=== PATIENT | male | born 1955 | race Caucasian/White ===

== ENCOUNTER 2017-10-10 11:11 | Emergency (ER) | payer SELFPAY ==
[~2017-10-10] VITALS: Ht 182.9 cm; Wt 104.5 kg
[~2017-10-10 11:11] MED LIST: PERC7.5T13 PO; VALI5TAB PO
[2017-10-10 11:12] VITALS: BP 159/96; PULSE 89; RESP 18; TEMP 96.9; O2SAT 97
[2017-10-10] MEDS ORDERED: IOHEXOL 350 MG/ML 10 ML VIAL (for RAD DIAG) IVCONTRAST ONE (11:12)
[2017-10-10] MEDS ORDERED: NORV2.5T PO (11:56)
[2017-10-10] MEDS ORDERED: DIAZ10 PO (11:56)
[2017-10-10] MEDS ORDERED: SODIUM CHLOR 0.9% 1000 ML INJ 1,000 ML IV SCH (12:20)
[2017-10-10] MEDS ORDERED: ONDANSETRON HCL 4 MG/2 ML VIAL IVP ONE (12:30)
[2017-10-10] MEDS ORDERED: SODIUM CHLORIDE 0.9% FLUSH 10 ML FLUSH IV FLUSH PRN (12:30)
[2017-10-10] MEDS ORDERED: MORPHINE SULFATE 4 MG/ML INJ IV PUSH ONE (12:30)
[2017-10-10 12:31] VITALS: RESP 17; O2SAT 98
--- NOTE | 2017-10-10 12:33 | PD ---
HPI Chief Complaint: Abdominal Pain Time Seen by Provider: 12:14 Travel History International Travel<30 days: No Contact w/Intl Traveler<30days: No Traveled to known affect area: No History of Present Illness HPI Patient is a 62-year-old male with history of hypertension currently taking amlodipine 2.5 mg daily who presents to emergency room complaints of abdominal pain. Reports that he has been having on and off abdominal pain for the past 6- 8 months. Patient reports that his right lower quadrant abdominal pain was exacerbated on . Patient reports that since , he has been sick and has not been able to get a bed. Patient reports that he has been having fevers and chills, reports that he has had multiple episodes of diarrhea. Patient reports that his is sick with similar symptoms only she does not have abdominal pain. Patient reports that pain starts in the right lower quadrant and radiates to his left lower quadrant. Denies any recent travels/ trips PFSH Past Medical History Arthritis: Yes Anxiety: Yes Depression: Yes Cardiac Catheterization: No Cardiovascular Problems: Yes (MITRAL VALVE PROLAPSE) High Cholesterol: No Congestive Heart Failure: No Diabetes: No Diminished Hearing: No Gastrointestinal Disorders: Yes GERD: Yes Hypertension: Yes (BORDERLINE) Psychiatric: Yes Tetanus Vaccination: > 5 Years Influenza Vaccination: No Past Surgical History Other Surgery: Yes (COLONOSCOPY) Social History Alcohol Use: No Tobacco Use: No (QUIT 2 YEARS AGO) Substance Use: No Allergies-Medications (Allergen,Severity, Reaction): Coded Allergies: codeine (Verified Adverse Reaction, Mild, Nausea/Vomiting, 10/10/17) Reported Meds & Prescriptions Reported Meds & Active Scripts Active Bentyl (Dicyclomine HCl) 10 Mg Cap 10 Mg PO QID Zofran (Ondansetron HCl) 4 Mg Tab 4 Mg PO Q6HR PRN Reported Valium (Diazepam) 10 Mg Tab 10 Mg PO BID PRN Norvasc (Amlodipine Besylate) 2.5 Mg Tab 2.5 Mg PO DAILY Review of Systems General / Constitutional: Positive: Fever, Chills Eyes: No: Visual changes HENT: No: Headaches Cardiovascular: No: Chest Pain or Discomfort Respiratory: No: Shortness of Breath Gastrointestinal: Positive: Nausea, Diarrhea, Abdominal Pain Genitourinary: No: Urgency, Frequency, Dysuria, Nocturia, Pelvic Pain Musculoskeletal: No: Pain Skin: No Rash Neurologic: No: Weakness Psychiatric: No: Depression Endocrine: No: Polydipsia Hematologic/Lymphatic: No: Easy Bruising Physical Exam Narrative GENERAL: moderate distress SKIN: Focused skin assessment warm/dry. HEAD: Atraumatic. Normocephalic. EYES: Pupils equal and round. No scleral icterus. No injection or drainage. ENT: No nasal bleeding or discharge. Mucous membranes pink and moist. NECK: Trachea midline. No JVD. CARDIOVASCULAR: Regular rate and rhythm. No murmur appreciated. RESPIRATORY: No accessory muscle use. Clear to auscultation. Breath sounds equal bilaterally. GASTROINTESTINAL: Abdomen soft, tender to rlq with rebound and guarding on exam MUSCULOSKELETAL: No obvious deformities. No clubbing. No cyanosis. No edema. NEUROLOGICAL: Awake and alert. No obvious cranial nerve deficits. Motor grossly within normal limits. Normal speech. PSYCHIATRIC: Appropriate mood and affect; insight and judgment normal. Data Data Last Documented VS Vital Signs Date Time Temp Pulse Resp B/P (MAP) Pulse Ox O2 Delivery O2 Flow Rate FiO2 10/10/17 12:42 16 10/10/17 12:31 98 Room Air 10/10/17 11:12 96.9 89 Orders Orders Complete Blood Count With Diff (10/10/17 12:20) Comprehensive Metabolic Panel (10/10/17 12:20) Lipase (10/10/17 12:20) Prothrombin Time / Inr (Pt) (10/10/17 12:20) Act Partial Throm Time (Ptt) (10/10/17 12:20) Urinalysis - C+S If Indicated (10/10/17 12:20) Iv Access Insert/Monitor (10/10/17 12:20) Ecg Monitoring (10/10/17 12:20) Oximetry (10/10/17 12:20) NPO (10/10/17 12:20) Sodium Chlor 0.9% 1000 Ml Inj (Ns 1000 M (10/10/17 12:20) Sodium Chloride 0.9% Flush (Ns Flush) (10/10/17 12:30) Ct Abd/Pel W Iv Contrast(Rout) (10/10/17 12:25) Morphine Inj (Morphine Inj) (10/10/17 12:30) Ondansetron Inj (Zofran Inj) (10/10/17 12:30) Iohexol 350 Inj (Omnipaque 350 Inj) (10/10/17 11:12) Labs Laboratory Tests Test 10/10/17 12:21 10/10/17 13:15 White Blood Count 6.4 TH/MM3 Red Blood Count 5.64 MIL/MM3 Hemoglobin 17.2 GM/DL Hematocrit 50.0 % Mean Corpuscular Volume 88.6 FL Mean Corpuscular Hemoglobin 30.6 PG Mean Corpuscular Hemoglobin Concent 34.5 % Red Cell Distribution Width 13.4 % Platelet Count 211 TH/MM3 Mean Platelet Volume 8.7 FL Neutrophils (%) (Auto) 46.6 % Lymphocytes (%) (Auto) 31.9 % Monocytes (%) (Auto) 19.8 % Eosinophils (%) (Auto) 1.3 % Basophils (%) (Auto) 0.4 % Neutrophils # (Auto) 3.0 TH/MM3 Lymphocytes # (Auto) 2.0 TH/MM3 Monocytes # (Auto) 1.3 TH/MM3 Eosinophils # (Auto) 0.1 TH/MM3 Basophils # (Auto) 0.0 TH/MM3 CBC Comment DIFF FINAL Differential Comment Prothrombin Time 10.9 SEC Prothromb Time International Ratio 1.1 RATIO Activated Partial Thromboplast Time 28.3 SEC Blood Urea Nitrogen 18 MG/DL Creatinine 1.21 MG/DL Random Glucose 98 MG/DL Total Protein 8.5 GM/DL Albumin 3.8 GM/DL Calcium Level 9.5 MG/DL Alkaline Phosphatase 67 U/L Aspartate Amino Transf (AST/SGOT) 26 U/L Alanine Aminotransferase (ALT/SGPT) 35 U/L Total Bilirubin 0.5 MG/DL Sodium Level 136 MEQ/L Potassium Level 4.8 MEQ/L Chloride Level 103 MEQ/L Carbon Dioxide Level 27.1 MEQ/L Anion Gap 6 MEQ/L Estimat Glomerular Filtration Rate 61 ML/MIN Lipase 202 U/L Urine Color YELLOW Urine Turbidity CLEAR Urine pH 5.5 Urine Specific [place] 1.025 Urine Protein 30 mg/dL Urine Glucose (UA) NEG mg/dL Urine Ketones TRACE mg/dL Urine Occult Blood NEG Urine Nitrite NEG Urine Bilirubin NEG Urine Urobilinogen LESS THAN 2.0 MG/DL Urine Leukocyte Esterase NEG Urine WBC 1 /hpf Urine Squamous Epithelial Cells <1 /hpf Urine Mucus FEW /lpf Microscopic Urinalysis Comment CULT NOT INDICATED MDM Medical Decision Making Medical Screen Exam Complete: Yes Emergency Medical Condition: Yes Medical Record Reviewed: Yes Interpretation(s) Vital Signs Date Time Temp Pulse Resp B/P (MAP) Pulse Ox O2 Delivery O2 Flow Rate FiO2 10/10/17 11:57 17 10/10/17 11:12 96.9 89 18 159/96 (117) 97 Differential Diagnosis Appendicitis, gastroenteritis, colitis, viral syndrome, electrolyte abnormality , uti Narrative Course 62-year-old male who presents to emergency room with complaints of abdominal pain which has been ongoing for the past 6-8 months. He reports that since , he has had fevers and chills, he has not been able to get out of bed and has increased right lower quadrant pain radiating to his left lower quadrant. On evaluation, patient is uncomfortable, he has had right lower quadrant pain with rebound and guarding exam, CT of the abdomen and pelvis ordered to evaluate for possible appendicitis versus colitis. During the course of the patients emergency department visit, the patients history, examination, and differential diagnosis were reviewed with the patient. The patient was placed on a panelbeater with oximetry and frequent blood pressure monitoring. The patient had an V access obtained and blood work sent for analysis. The patient was initially provided IVF, IV Morphine as well as IV zofran The patients laboratory studies were reviewed and remarkable for: CBC & BMP Diagram 10/10/17 12:21 Total Protein 8.5 H, Albumin 3.8, Calcium Level 9.5, Alkaline Phosphatase 67, Aspartate Amino Transf (AST/SGOT) 26, Alanine Aminotransferase (ALT/SGPT) 35, Total Bilirubin 0.5 Radiology studies were reviewed and remarkable for: Last Impressions Abdomen/Pelvis CT 10/10/17 1225 Signed Impressions: Service Date/Time: Tuesday, October 10, 2017 13:37 - CONCLUSION: 1. Negative for appendicitis. 2. I do not see an etiology for the right lower quadrant pain Jacobo Hernandez MD FACR Laboratory unremarkable, CT of the abdomen pelvis with IV contrast unremarkable , patient with most likely a gastroenteritis as his has similar symptoms at home. Discussed with him need to hydrate with fluids, I did review with him signs and symptoms of acute abdomen. Patient will return to the emergency room as needed. In the meantime, patient will follow up with his primary care doctor. He'll be given a copy of the lab work as well as his studies for follow up. Abdomen is soft, nontender, nondistended, no peritoneal signs on discharge. Diagnosis Primary Impression: Abdominal pain Qualified Codes: R10.30 - Lower abdominal pain, unspecified Patient Instructions: General Instructions, Narcotic given in the ED Departure Forms: Tests/Procedures, Work Release Enter return to work date: Oct 12, 2017 Additional Instructions: Please provide patient with a copy of their lab work and studies at discharge* * Please follow up with your primary care doctor in 1-2 days Return to the ER if symptoms worsen or progress Return to the ER as needed Please drink plenty of fluids Med/Other Pt SpecificInfo: Prescription(s) given Scripts Dicyclomine (Bentyl) 10 Mg Cap 10 MG PO QID for Bowel Management, #20 CAP 0 Refills Prov: Eva Vinson DO 10/10/17 Ondansetron (Zofran) 4 Mg Tab 4 MG PO Q6HR Y for NAUSEA OR VOMITING, #20 TAB 0 Refills Prov: Eva Vinson DO 10/10/17 Disposition: 01 DISCHARGE HOME Condition: Stable Eva Vinson DO Oct 10, 2017 12:33
[2017-10-10 12:42] VITALS: RESP 16
[2017-10-10 12:45] LABS: BASOPHIL % 0.4 % (0.0-2.0); EOSINOPHIL # 0.1 TH/MM3 (0-0.4); EOSINOPHIL % 1.3 % (0.0-4.0); HEMOGLOBIN 17.2 GM/DL (13.0-17.0); LYMPH % 31.9 % (9.0-44.0); MEAN CELL VOLUME 88.6 FL (80.0-100.0); MEAN CORPUSCULAR HEMOGLOBIN 30.6 PG (27.0-34.0); MEAN CORPUSCULAR HGB CONC 34.5 % (32.0-36.0); MEAN PLATELET VOLUME 8.7 FL (7.0-11.0); MONO % 19.8 % (0.0-8.0); MONOCYTE # 1.3 TH/MM3 (0-0.9); NEUT % 46.6 % (16.0-70.0); PLATELET COUNT 211 TH/MM3 (150-450); RED BLOOD COUNT 5.64 MIL/MM3 (4.50-5.90); RED CELL DISTRIBUTION WIDTH 13.4 % (11.6-17.2); WHITE BLOOD COUNT 6.4 TH/MM3 (4.0-11.0)
[2017-10-10 12:49] LABS: INTERNATIONAL NORMALIZED RATIO 1.1 RATIO; PROTHROMBIN TIME - PATIENT 10.9 SEC (9.8-11.6)
[2017-10-10 12:58] LABS: ALBUMIN 3.8 GM/DL (3.4-5.0); ALT (GPT) 35 U/L (12-78); AST (GOT) 26 U/L (15-37); BICARBONATE 27.1 MEQ/L (21.0-32.0); BLOOD UREA NITROGEN 18 MG/DL (7-18); CALCIUM 9.5 MG/DL (8.5-10.1); CHLORIDE 103 MEQ/L (98-107); CREATININE 1.21 MG/DL (0.60-1.30); GLOMERULAR FILTRATION RATE 61 ML/MIN (>89); GLUCOSE,RANDOM 98 MG/DL (74-106); LIPASE 202 U/L (73-393); SODIUM (NA) 136 MEQ/L (136-145)
[2017-10-10 13:00] LABS: ALKALINE PHOSPHATASE 67 U/L (45-117); TOTAL BILIRUBIN ADULT 0.5 MG/DL (0.2-1.0); TOTAL PROTEIN 8.5 GM/DL (6.4-8.2)
[2017-10-10 13:32] LABS: BILIRUBIN, URINE NEG (NEG); BLOOD, URINE NEG (NEG); GLUCOSE,URINE NEG (NEG); KETONE, URINE TRACE mg/dL (NEG); MUCUS URINE FEW /lpf (OCC); NITRITE,URINE NEG (NEG); PH, URINE 5.5 (5.0-8.5); SQUAMOUS EPITHELIAL CELL URINE <1 /hpf (0-5); URINE COLOR YELLOW (YELLW/STRAW); URINE LEUKOCYTE ESTERASE NEG (NEG)
--- NOTE | 2017-10-10 13:55 | RADRPT ---
EXAM DATE/TIME: 10/10/2017 13:37 [facility] COMPARISON: CT ABDOMEN & PELVIS W CONTRAST, October 02, 2013, 1:13. INDICATIONS : Right lower quadrant pain for 3 days IV CONTRAST: 90 cc Omnipaque 350 (iohexol) IV ORAL CONTRAST: No oral contrast ingested. RADIATION DOSE: 12.83 CTDIvol (mGy) MEDICAL HISTORY : Hypertension. SURGICAL HISTORY : None. ENCOUNTER: Initial ACUITY: 3 days PAIN SCALE: 5/10 LOCATION: Right lower quadrant TECHNIQUE: Volumetric scanning of the abdomen and pelvis was performed. Using automated exposure control and ad justment of the mA and/or kV according to patient size, radiation dose was kept as low as reasonably achievable to obtain optimal diagnostic quality images. DICOM format image data is available electro nically for review and comparison. FINDINGS: Lung base is are clear. The liver, spleen, pancreas and adrenals unremarkable There is symmetric renal function without stone obstruction Region the cecum in right lower quadrant appear normal. There is abnormal appearing appendix without inflammatory changes. The pelvis there are no inflammatory changes. Bladder, prostate and seminal vesicles unremarkable There is no labral adenopathy There is no enterocolitis. Review of bone windows reveals mild degenerative changes. CONCLUSION: 1. Negative for appendicitis. 2. I do not see an etiology for the right lower quadrant pain Jacobo Hernandez MD FACR on October 10, 2017 at 13:51 Board Certified Radiologist. This report was verified electronically.
[2017-10-10] MEDS ORDERED: ZOFR4TAB PO ×2 (14:11→14:56)
[2017-10-10] MEDS ORDERED: DICY10 PO ×2 (14:11→14:56)
[2017-10-10 15:47] VITALS: BP 134/66
== END 2017-10-10 16:03 | disposition home or self-care (01) ==
LOC: NEPD 11:11
DX: R10.31 Right lower quadrant pain (principal)
CPT/HCPCS: 74177; 80053; 81001; 83690; 85025; 85610; 85730; 96374; 96375; 99285; J2270; J2405; J7030; Q9967

== ENCOUNTER 2018-01-24 14:05 | Emergency (ER) | payer SELFPAY ==
[~2018-01-24] VITALS: Ht 182.9 cm; Wt 102.3 kg
[~2018-01-24 14:05] MED LIST changes: +DIAZ10 PO; +DICY10 PO; +NORV2.5T PO; -PERC7.5T13 PO; -VALI5TAB PO; +ZOFR4TAB PO
[2018-01-24] MEDS ORDERED: GADODIAMIDE PF 287 MG/ML 20 ML VIAL (for RAD MRI) IV PUSH ONE (14:06)
[2018-01-24 14:13] VITALS: BP 152/74; PULSE 65; RESP 18; TEMP 97.4; O2SAT 100
--- NOTE | 2018-01-24 14:57 | RADRPT ---
EXAM DATE/TIME: 01/24/2018 14:45 [facility] COMPARISON: CT ABDOMEN & PELVIS W CONTRAST, October 10, 2017, 13:37. INDICATIONS : Dizziness and headache for 1 week RADIATION DOSE: 37.75 CTDIvol (mGy) MEDICAL HISTORY : Hypertension. SURGICAL HISTORY : None. ENCOUNTER: Initial ACUITY: 1 week PAIN SCALE: 6/10 LOCATION: cranial TECHNIQUE: Multiple contiguous axial images were obtained of the head. Using automated exposure control and adj ustment of the mA and/or kV according to patient size, radiation dose was kept as low as reasonably a chievable to obtain optimal diagnostic quality images. DICOM format image data is available electro nically for review and comparison. FINDINGS: CEREBRUM: The ventricles are normal for age. No evidence of midline shift, mass lesion, hemorrhage or acute in farction. No extra-axial fluid collections are seen. POSTERIOR FOSSA: The cerebellum and brainstem are intact. The 4th ventricle is midline. The cerebellopontine angle i s unremarkable. EXTRACRANIAL: The visualized portion of the orbits is intact. SKULL: The calvaria is intact. No evidence of skull fracture. CONCLUSION: 1. No acute intracranial abnormality identified. Robinson Hernandez MD on January 24, 2018 at 14:51 Board Certified Radiologist. This report was verified electronically.
[2018-01-24 15:16] VITALS: BP 159/76; PULSE 65; RESP 19; O2SAT 100
[2018-01-24] MEDS ORDERED: SODIUM CHLORID 0.9% 500 ML INJ 500 ML IV ONE (15:30)
[2018-01-24] MEDS ORDERED: MECLIZINE HCL 25 MG TAB PO ONE (15:30)
[2018-01-24 15:47] LABS: AUTOMATED NEUTROPHIL # 6.4 TH/MM3 (1.8-7.7); BASOPHIL # 0.1 TH/MM3 (0-0.2); BASOPHIL % 0.6 % (0.0-2.0); EOSINOPHIL # 0.4 TH/MM3 (0-0.4); EOSINOPHIL % 3.6 % (0.0-4.0); HEMATOCRIT 44.3 % (39.0-51.0); HEMOGLOBIN 15.3 GM/DL (13.0-17.0); LYMPH % 26.3 % (9.0-44.0); LYMPHOCYTE # 2.7 TH/MM3 (1.0-4.8); MEAN CELL VOLUME 88.9 FL (80.0-100.0); MEAN CORPUSCULAR HEMOGLOBIN 30.8 PG (27.0-34.0); MEAN CORPUSCULAR HGB CONC 34.6 % (32.0-36.0); MEAN PLATELET VOLUME 8.5 FL (7.0-11.0); MONOCYTE # 0.7 TH/MM3 (0-0.9); NEUT % 62.5 % (16.0-70.0); PLATELET COUNT 257 TH/MM3 (150-450); RED BLOOD COUNT 4.98 MIL/MM3 (4.50-5.90); RED CELL DISTRIBUTION WIDTH 13.5 % (11.6-17.2); WHITE BLOOD COUNT 10.3 TH/MM3 (4.0-11.0)
[2018-01-24] MEDS ORDERED: ACETAMINOPHEN 325 MG TAB PO ONE (16:00)
[2018-01-24 16:03] LABS: ALBUMIN 4.1 GM/DL (3.4-5.0); AST (GOT) 16 U/L (15-37); BICARBONATE 26.3 MEQ/L (21.0-32.0); BLOOD UREA NITROGEN 10 MG/DL (7-18); CALCIUM 9.1 MG/DL (8.5-10.1); CHLORIDE 110 MEQ/L (98-107); CREATININE 0.93 MG/DL (0.60-1.30); GLOMERULAR FILTRATION RATE 83 ML/MIN (>89); GLUCOSE,RANDOM 91 MG/DL (74-106); SODIUM (NA) 142 MEQ/L (136-145)
[2018-01-24 16:14] LABS: ALKALINE PHOSPHATASE 85 U/L (45-117); ALT (GPT) 31 U/L (12-78); TOTAL BILIRUBIN ADULT 0.4 MG/DL (0.2-1.0); TOTAL PROTEIN 7.9 GM/DL (6.4-8.2); TROPONIN I 0.03 NG/ML (0.02-0.05)
--- NOTE | 2018-01-24 17:02 | PD ---
HPI Chief Complaint: Headache Time Seen by Provider: 15:09 Travel History International Travel<30 days: No Contact w/Intl Traveler<30days: No Traveled to known affect area: No History of Present Illness HPI Patient is a 62-year-old male comes in complaining of dizziness and headache. He says that last Tuesday he had an episode of dizziness that caused him to fall. He denies losing consciousness. He says since then he has had a headache. He went to see his doctor who ordered a CAT scan of his brain, but he said that his insurance is not approved the test yet. He says his told him to come in because he should not wait any longer. He says the pain is all over his head. He is no longer feeling dizzy. He denies chest pain or shortness of breath. He denies fever chills. He denies any head injury. He took [id number]-[id number] pain medicine without relief of his symptoms. He says the dizziness really came on whenever he moved around, and he was okay when staying still. Severity is mild to moderate. PFSH Past Medical History Arthritis: Yes Anxiety: Yes Depression: Yes Cardiac Catheterization: Yes Cardiovascular Problems: Yes (MITRAL VALVE PROLAPSE) High Cholesterol: No Congestive Heart Failure: No Diabetes: No Diminished Hearing: No Gastrointestinal Disorders: Yes GERD: Yes Headaches: Yes Hypertension: Yes Psychiatric: Yes Tetanus Vaccination: Unknown Influenza Vaccination: No Past Surgical History Other Surgery: Yes (COLONOSCOPY) Social History Alcohol Use: No Tobacco Use: No (QUIT 2 YEARS AGO) Substance Use: No Allergies-Medications (Allergen,Severity, Reaction): Coded Allergies: codeine (Verified Adverse Reaction, Mild, Nausea/Vomiting, 10/10/17) Reported Meds & Prescriptions Reported Meds & Active Scripts Active Bentyl (Dicyclomine HCl) 10 Mg Cap 10 Mg PO QID Zofran (Ondansetron HCl) 4 Mg Tab 4 Mg PO Q6HR PRN Reported Valium (Diazepam) 10 Mg Tab 10 Mg PO BID PRN Norvasc (Amlodipine Besylate) 2.5 Mg Tab 2.5 Mg PO DAILY Review of Systems Except as stated in HPI: all other systems reviewed are Neg General / Constitutional: No: Fever, Chills Eyes: Positive: Blurred Vision HENT: Positive: Headaches, Vertigo Cardiovascular: No: Chest Pain or Discomfort Respiratory: No: Shortness of Breath Gastrointestinal: No: Nausea, Vomiting Musculoskeletal: No: Myalgias Skin: No Rash, No Change in Pigmentation Neurologic: No: Weakness, Dizziness Physical Exam Narrative GENERAL: Awake and alert, in no acute distress. SKIN: Focused skin assessment warm/dry. HEAD: Atraumatic. Normocephalic. EYES: Pupils equal and round. No scleral icterus. Extraocular movements intact. ENT: Mucous membranes pink and moist. NECK: Trachea midline. No JVD. CARDIOVASCULAR: Regular rate and rhythm. No murmur appreciated. RESPIRATORY: No accessory muscle use. Clear to auscultation. Breath sounds equal bilaterally. GASTROINTESTINAL: Abdomen soft, non-tender, nondistended. MUSCULOSKELETAL: No obvious deformities. No clubbing. No cyanosis. No edema. NEUROLOGICAL: Awake and alert. No obvious cranial nerve deficits. Motor grossly within normal limits. Normal speech. Normal cerebellar function testing. PSYCHIATRIC: Appropriate mood and affect; insight and judgment normal. Data Data Last Documented VS Vital Signs Date Time Temp Pulse Resp B/P (MAP) Pulse Ox O2 Delivery O2 Flow Rate FiO2 01/24/18 15:17 67 19 100 Room Air 01/24/18 15:16 159/76 (103) 01/24/18 14:13 97.4 Orders Orders Electrocardiogram (01/24/18 14:16) Complete Blood Count With Diff (01/24/18 14:16) Comprehensive Metabolic Panel (01/24/18 14:16) Creatine Kinase (Cpk) (01/24/18 14:16) Prothrombin Time / Inr (Pt) (01/24/18 14:16) Act Partial Throm Time (Ptt) (01/24/18 14:16) Troponin I (01/24/18 14:16) Thyroid Stimulating Hormone (01/24/18 14:16) Ct Brain W/O Iv Contrast(Rout) (01/24/18 14:16) Meclizine (Antivert) (01/24/18 15:30) Sodium Chlorid 0.9% 500 Ml Inj (Ns 500 M (01/24/18 15:30) Acetaminophen (Tylenol) (01/24/18 16:00) Mri Brain W&W/O Contrast (01/24/18 ) Gadodiamide Pf Inj (Omniscan Pf Inj) (01/24/18 14:06) Prochlorperazine Inj (Compazine Inj) (01/24/18 17:30) Diphenhydramine Inj (Benadryl Inj) (01/24/18 17:30) Ketorolac Inj (Toradol Inj) (01/24/18 17:30) Labs Laboratory Tests Test 01/24/18 15:30 White Blood Count 10.3 TH/MM3 Red Blood Count 4.98 MIL/MM3 Hemoglobin 15.3 GM/DL Hematocrit 44.3 % Mean Corpuscular Volume 88.9 FL Mean Corpuscular Hemoglobin 30.8 PG Mean Corpuscular Hemoglobin Concent 34.6 % Red Cell Distribution Width 13.5 % Platelet Count 257 TH/MM3 Mean Platelet Volume 8.5 FL Neutrophils (%) (Auto) 62.5 % Lymphocytes (%) (Auto) 26.3 % Monocytes (%) (Auto) 7.0 % Eosinophils (%) (Auto) 3.6 % Basophils (%) (Auto) 0.6 % Neutrophils # (Auto) 6.4 TH/MM3 Lymphocytes # (Auto) 2.7 TH/MM3 Monocytes # (Auto) 0.7 TH/MM3 Eosinophils # (Auto) 0.4 TH/MM3 Basophils # (Auto) 0.1 TH/MM3 CBC Comment DIFF FINAL Differential Comment Prothrombin Time 10.0 SEC Prothromb Time International Ratio 1.0 RATIO Activated Partial Thromboplast Time 25.3 SEC Blood Urea Nitrogen 10 MG/DL Creatinine 0.93 MG/DL Random Glucose 91 MG/DL Total Protein 7.9 GM/DL Albumin 4.1 GM/DL Calcium Level 9.1 MG/DL Alkaline Phosphatase 85 U/L Aspartate Amino Transf (AST/SGOT) 16 U/L Alanine Aminotransferase (ALT/SGPT) 31 U/L Total Bilirubin 0.4 MG/DL Sodium Level 142 MEQ/L Potassium Level 4.3 MEQ/L Chloride Level 110 MEQ/L Carbon Dioxide Level 26.3 MEQ/L Anion Gap 6 MEQ/L Estimat Glomerular Filtration Rate 83 ML/MIN Total Creatine Kinase 58 U/L Troponin I 0.03 NG/ML Thyroid Stimulating Hormone 3rd Gen 0.633 uIU/ML MDM Medical Decision Making Medical Screen Exam Complete: Yes Emergency Medical Condition: Yes Medical Record Reviewed: Yes Interpretation(s) ECG shows sinus rhythm at a rate of 58, 0.[address] elevation in leads aVF and V3. No ST depressions. Differential Diagnosis Dehydration versus vertigo versus TIA versus tension headache Narrative Course Patient is a 62 year old male who comes in complaining of headache and dizziness. Exam shows no neurologic abnormalities. IV established, labs sent. Labs show no acute abnormalities. CT head shows no acute abnormalities. MRI brain shows no acute abnormalities. Last [address] 01/24/18 1416 Signed Impressions: Service Date/Time: Wednesday, January 24, 2018 14:45 - CONCLUSION: 1. No acute intracranial abnormality identified. Robinson Hernandez MD Brain MRI 01/24/18 0000 Signed Impressions: Service Date/Time: Wednesday, January 24, 2018 16:08 - CONCLUSION: Normal MRI of the brain. Jad Yates MD Given migraine cocktail. Discharged to follow up with his doctor. Advised to return to the ED as needed for any worsening symptoms. Given a prescription for Fioricet to take for severe headache symptoms. Diagnosis Primary Impression: Headache Qualified Codes: R51 - Headache Patient Instructions: Acute Headache (ED), General Instructions Additional Instructions: Take Tylenol or ibuprofen as needed for headache. You can take a Fioricet as needed for severe headache. Drink plenty of fluids. Follow-up with your doctor. Return to the ED as needed for any worsening symptoms. Scripts Lmneqyrgsx-Jzlwweizevwce-Pjddpzrg (Fioricet) 50-300-40 Mg Cap 1 CAP PO Q4H Y for HEADACHE, #10 CAP 0 Refills Prov: Echo Garrido MD 01/24/18 Disposition: 01 DISCHARGE HOME Condition: Stable Echo Garrido MD Jan 24, 2018 17:02
--- NOTE | 2018-01-24 17:05 | RADRPT ---
EXAM DATE/TIME: 01/24/2018 16:08 [facility] COMPARISON: CT BRAIN W/O CONTRAST, January 24, 2018, 14:45. INDICATIONS : Cephalgia. CONTRAST: 20 cc Omniscan (gadodiamide) IV MEDICAL HISTORY : Hypertension. SURGICAL HISTORY : None. ENCOUNTER: Initial ACUITY: 4-6 days PAIN SCORE: 4/10 LOCATION: Head TECHNIQUE: Multiplanar, multisequence MRI of the brain was performed both prior to and following the administrat ion of paramagnetic contrast. FINDINGS: CEREBRUM: The ventricles are normal for age. No evidence of midline shift, mass lesion, hemorrhage or acute in farction. No extraaxial fluid collections are seen. The pituitary gland and suprasellar cistern are normal in configuration. WHITE MATTER: No significant signal abnormalities are seen in the white matter. POSTERIOR FOSSA: The cerebellum and brainstem are intact. The 4th ventricle is midline. The cerebellopontine angle is unremarkable. The cerebellar tonsils are normal in position. DIFFUSION IMAGING: No focal areas of restricted diffusion are seen. No evidence of acute infarction. EXTRACRANIAL: The visualized portions of the orbits and paranasal sinuses are unremarkable. POST-CONTRAST: No abnormal areas of parenchymal or dural enhancement. No evidence of blood-brain barrier breakdown. CONCLUSION: Normal MRI of the brain. Jad Yates MD on January 24, 2018 at 17:02 Board Certified Radiologist. This report was verified electronically.
[2018-01-24] MEDS ORDERED: KETOROLAC TROMETHAMINE 30 MG/ML (IVP) VIAL IV PUSH ONE (17:30)
[2018-01-24] MEDS ORDERED: PROCHLORPERAZINE INJ 10 MG/2 ML VIAL IV PUSH ONE (17:30)
[2018-01-24] MEDS ORDERED: diphenhydrAMINE HCL 50 MG/ML VIAL IV PUSH ONE (17:30)
[2018-01-24] MEDS ORDERED: BUTA1CAP PO (18:02)
--- NOTE | 2018-01-25 13:13 | EKG ---
Date Performed: 01/24/2018 Time Performed: 15:26:27 PTAGE: 62 years EKG: SINUS BRADYCARDIA NONSPECIFIC ST ELEVATION BORDERLINE ECG PREVIOUS TRACING : 04/02/2013 00.41 DOCTOR: Jerry Monk Interpretating Date/Time 01/25/2018 13:12:49
== END 2018-01-24 18:53 | disposition home or self-care (01) ==
LOC: NEPE 14:05
DX: R51 Headache (principal); R42 Dizziness and giddiness; R94.31 Abnormal electrocardiogram [ECG] [EKG]; I34.1 Nonrheumatic mitral (valve) prolapse; I10 Essential (primary) hypertension; Z88.5 Allergy status to narcotic agent
CPT/HCPCS: 70450; 70553; 80053; 82550; 84443; 84484; 85025; 85610; 85730; 93005; 96361; 96374; 96375; 99285; A9579; J0780; J1200; J1885; J7040